=== PATIENT | female | born 1930 | race Caucasian/White ===

== ENCOUNTER 2017-03-24 19:53 | Emergency (ER) | payer OTHER, BC ==
[~2017-03-24] VITALS: Ht 152.4 cm; Wt 81.9 kg
[~2017-03-24 19:53] MED LIST: ASCORBIC ACID500 M3 PO; ASPIRIN325 MG PO; BENADRYL25 MG PO; BISAC-EVAC10 MG PR; CALCIUM 600 +1 EAC1 PO; CITROMA296 ML PO; COUMADIN1 MG PO; EVISTA60 MG PO; FERROUS SULFAT325 MG PO; FIBERCON625 MG PO; GABAPENTIN300 MG PO; LEVOTHYROXINE175 MCG PO; LORAZEPAM0.5 MG PO; MELOXICAM7.5 MG PO; METHOCARBAMOL500 MG PO; ONDANSETRON ODT4 MG PO; OXYCODONE HCL5 MG PO; SENNA-TIME S T1 EACH PO; TYLENOL EXTRA500 MG PO; VITAMIN B-6100 MG PO
[2017-03-24 21:13] LABS: ADD MIUA? YES; BILIRUBIN NEGATIVE; BLOOD NEGATIVE; COLOR YELLOW ((YELLOW)); GLUCOSE (STRIP) NEGATIVE; KETONES 5; LEUKOCYTES SMALL; NITRITE NEGATIVE; PROTEIN (STRIP) NEGATIVE; SPECIFIC GRAVITY 1.019 (1.000-1.030); UROBILINOGEN 0.2 MG/DL (0.2-1.0)
[2017-03-24 21:13] LABS: HEMATOCRIT 44.2 % (36.0-46.0); MCH 31.2 PG (29.0-34.0); MCHC 33.5 G/DL (30.0-36.0); MCV 93.1 FL (83-99); MEAN PLAT.VOLUME 9.4 uM^3 (9.5-12.4); PLATELET COUNT 351 K/uL (156-360); RBC DIS.WIDTH-CV 12.6 % (11.8-14.6); RBC DIS.WIDTH-SD 43.3 % (39-53); RED BLOOD COUNT 4.75 M/uL (3.80-5.20); WHITE BLOOD COUNT 10.1 K/uL (4.1-10.2)
[2017-03-24 21:23] LABS: CHLORIDE 106 mEq/L (99-109); POTASSIUM 3.8 mEq/L (3.7-5.4); SODIUM 139 mEq/L (136-147)
[2017-03-24 21:25] LABS: GLUCOSE 146 mg/dL (70-99)
[2017-03-24 21:26] LABS: ANION GAP 12 MEQ/L (2-14)
[2017-03-24 21:27] LABS: TOTAL BILIRUBIN 0.5 mg/dL (0.0-1.0)
[2017-03-24 21:28] LABS: ALKALINE PHOSPHATASE 50 IU/L (3-129)
[2017-03-24 21:29] LABS: GFR ESTIMATE (CALCULATED) > 59 mL/min/
[2017-03-24 21:29] LABS: BACTERIA RARE /HPF; EPITHELIAL CELLS 1+ /HPF; MUCUS TRACE /LPF; RED BLOOD CELLS 0-5 /HPF (0-5); UCUL ADDED? NO; WHITE BLOOD CELLS 0-5 /HPF (0-5)
[2017-03-24 21:30] LABS: UREA NITROGEN (BUN) 13 mg/dL (9-23)
[2017-03-24 22:06] LABS: LIPASE 12 U/L (1.0-51.0)
[2017-03-25] MEDS ORDERED: TORADOL10 MG PO (00:29)
[2017-03-25] MEDS ORDERED: ZOFRAN4 MG PO (00:29)
[2017-03-25 00:57] VITALS: BP 161/93
== END 2017-03-25 00:58 | disposition home or self-care (01) ==
LOC: EME 19:53
DX: N83.209 Unspecified ovarian cyst, unspecified side (principal); R10.30 Lower abdominal pain, unspecified; G62.9 Polyneuropathy, unspecified; Z96.653 Presence of artificial knee joint, bilateral
CPT/HCPCS: 74177; 80053; 81003; 83690; 85027; 93005; 99281; 99285; J1885; J2405; J7030